=== PATIENT | female | born 1960 ===

== ENCOUNTER 2023-10-04 10:12 | Outpatient (CLI) | payer OTHER ==
[2023-10-05 08:10] LABS: MEASLES ANTIBODIES IGG <13.5 AU/mL (Immune >16.4); MUMPS ANTIBODIES IGG 26.1 AU/mL (Immune >10.9)
== END 2023-10-04 10:13 | disposition home or self-care (01) ==
LOC: LAB 10:12
PROVIDERS: ATTEND Emergency Medicine
DX: Z01.89 Encounter for other specified special examinations (principal)
CPT/HCPCS: 36415; 86735; 86762; 86765